=== PATIENT | female | born 1980 | race Caucasian/White ===

== ENCOUNTER 2018-10-14 08:37 | Day surgery (SDC) | payer OTHER ==
[2018-10-07 11:19] LABS: HEMOGLOBIN 13.7 g/dL (12.0-15.5); MEAN CORPUSCULAR HEMOGLOBIN 29.3 pg (27.0-33.4); MEAN CORPUSCULAR HGB CONC 34.3 g/dL (32.0-36.0); MEAN CORPUSCULAR VOLUME 85 fl (80-97); PLATELET COUNT 262 10^3/uL (150-450); RED CELL DISTRIBUTION WIDTH 12.9 % (11.5-14.0); WHITE BLOOD COUNT 9.8 10^3/uL (4.0-10.5)
[2018-10-07 11:24] LABS: APPEARANCE,URINE SLIGHTLY-CLOUDY; BILIRUBIN,URINE NEGATIVE (NEGATIVE); COLOR,URINE YELLOW; GLUCOSE, URINE NEGATIVE (NEGATIVE); KETONES,URINE NEGATIVE (NEGATIVE); LEUKOCYTE ESTERASE,URINE NEGATIVE (NEGATIVE); NITRITE,URINE NEGATIVE (NEGATIVE); PROTEIN,URINE NEGATIVE (NEGATIVE); URINE SPECIFIC GRAVITY 1.018; UROBILINOGEN,URINE NEGATIVE mg/dL (<2.0)
[2018-10-07 11:51] LABS: ALANINE AMINOTRANSFERASE 12 U/L (9-52); ALBUMIN 4.6 g/dL (3.5-5.0); ALKALINE PHOSPHATASE 59 U/L (38-126); ANION GAP 12 (5-19); ASPARTATE AMINO TRANSFERASE 16 U/L (14-36); BILIRUBIN,DIRECT 0.2 mg/dL (0.0-0.4); BILIRUBIN,TOTAL 0.4 mg/dL (0.2-1.3); BLOOD UREA NITROGEN 9 mg/dL (7-20); CARBON DIOXIDE 25 mmol/L (22-30); CHLORIDE 105 mmol/L (98-107); GLUCOSE 60 mg/dL (75-110); POTASSIUM 3.8 mmol/L (3.6-5.0); SODIUM 142.2 mmol/L (137-145); TOTAL PROTEIN 7.7 g/dL (6.3-8.2)
[~2018-10-14 08:37] MED LIST: CEFAZOLIN 2 GM/D5W RTU 2 GM/50 ML RTUPB IV ONE; CEFAZOLIN 2 GM/D5W RTU 2 GM/50 ML RTUPB IV PRN; LACTATED RINGERS 1000 ML IV PRN; LIDOCAINE 0.5% INJ-PF (5 MG/ML) 50 ML SDV SUBCUT PRN; RINGERS SOLUTION,LACTATED 1,000 ML IV PRN
[2018-10-14] MEDS ORDERED: BUPIVACAINE HCL 0.25 % INJ/PF (2.5 MG/1 ML) 30 ML VIAL ONE (09:04)
[2018-10-14] MEDS ORDERED: METHYLENE BLUE 50 MG/10 ML AMPULE ONE (09:04)
[2018-10-14] MEDS ORDERED: LIDOCAINE 2% INJ-PF (100 MG/5 ML) SYRINGE ONE (09:27)
[2018-10-14] MEDS ORDERED: FENTANYL CITRATE INJ/PF 250 MCG/5 ML AMPULE ONE (09:27)
[2018-10-14] MEDS ORDERED: MIDAZOLAM 2 MG/2 ML INJ ONE (09:27)
[2018-10-14] MEDS ORDERED: ONDANSETRON HCL INJ/PF 4 MG/2 ML SDV ONE (09:27)
[2018-10-14] MEDS ORDERED: DEXAMETHASONE SOD PHOSPHATE INJ 4 MG/1 ML VIAL ONE (09:27)
[2018-10-14] MEDS ORDERED: HYDROMORPHONE HCL INJ/PF 2 MG/ML AMPULE ONE (09:27)
[2018-10-14] MEDS ORDERED: EPHEDRINE SULFATE INJ 50 MG/1 ML AMPULE ONE (09:27)
[2018-10-14] MEDS ORDERED: PROPOFOL INJ 200 MG/20 ML VIAL IV ONE (09:28)
[2018-10-14] MEDS ORDERED: ACETAMINOPHEN 1,000 MG/100 ML RTUPB IV ONE (09:28)
[2018-10-14] MEDS ORDERED: PROMETHAZINE HCL INJ 25 MG/1 ML VIAL ONE (09:50)
[2018-10-14] MEDS ORDERED: PROMETHAZINE HCL INJ 25 MG/1 ML VIAL IV PRN ×3 (10:30→12:53)
[2018-10-14] MEDS ORDERED: FENTANYL CITRATE INJ/PF 100 MCG/2 ML AMPUL IV PRN ×3 (10:30)
[2018-10-14] MEDS ORDERED: MEPERIDINE HCL/PF INJ 25 MG/1 ML DISP.SYRIN IV PRN (10:30)
[2018-10-14] MEDS ORDERED: MORPHINE SULFATE 10 MG/ML INJ IV PRN ×2 (10:30→12:52)
[2018-10-14] MEDS ORDERED: DIPHENHYDRAMINE HCL 50 MG/ML VIAL IV PRN (10:30)
[2018-10-14] MEDS: FENTANYL CITRATE INJ/PF 100 MCG/2 ML AMPUL ONE ×3 (12:24→12:35)
[2018-10-14] MEDS ORDERED: OXYCODONE-ACETAMINOPHEN 5-325 MG TABLET PO PRN (12:50)
[2018-10-14] MEDS ORDERED: OXYCODONE HCL IR 5 MG TABLET PO PRN (12:52)
[2018-10-14] MEDS ORDERED: ONDANSETRON HCL INJ/PF 4 MG/2 ML SDV IV PRN (12:53)
[2018-10-14] MEDS ORDERED: NORMAL SALINE 1000 ML 1,000 ML IV ONE (13:00)
--- NOTE | 2018-10-14 13:12 | OPERATIVE REPORT E ---
Operative Report NAME: BRENNEN SIMMONS : 1980 AGE: 37Y DATE OF SURGERY: 10/14/2018 ROOM: PREOPERATIVE DIAGNOSES: 1. Abnormal uterine bleeding, unresponsive to previous medical therapy. 2. Chronic *------* pain. 3. 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 POSTOPERATIVE DIAGNOSES: 1. Abnormal uterine bleeding, unresponsive to previous medical therapy. 2. Chronic *------* pain. 3. 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 PROCEDURES: 1. Robotic total laparoscopic hysterectomy. 2. Bilateral salpingectomy. 3. Left salpingo-oophorectomy. 4. Cystoscopy. SURGEON: Chante Roque M.D. INSURANCE CLAIMS ASSISTANT: Alycia Shaffer M.D. ANESTHESIA: General. ESTIMATED BLOOD LOSS: 150 mL. URINE OUTPUT: 200 mL clear urine at end of procedure. FLUIDS: 1200 mL. COMPLICATIONS: None. SPECIMEN: Uterus, tubes bilaterally and left ovary with a teratoma and dermoid and cervix. DISPOSITION: To PACU. INDICATIONS: The patient is a 37-year-old G2, P1-0-1-1 who presented with a chief complaint of abnormal uterine bleeding, ongoing for several months, unresponsive to previous medical therapy, and has been having chronic pelvic pain. The patient also reports, based on her ultrasound results, that she has a 7 cm left ovarian teratoma. She was consented on procedure on robotic hysterectomy as she is not dependent of surgical management and procedure, was counseled including but not limited to risk of bleeding, infection, injury to bowel, bladder, risk of transfusion, possible exploratory laparotomy and any other indicated procedures. The patient agreed and consented to proceed to the operating room. DESCRIPTION OF PROCEDURE: The patient was taken to the operating room where general anesthesia was achieved without difficulty. She was prepped and draped in the usual sterile fashion from below. A heavy-weighted speculum was inserted and the Clayton retractor anteriorly was introduced. Cervix was visualized, grasped with a single-toothed tenaculum and cervical os was stenotic and was dilated with Hegar dilators. A Vcare manipulator was introduced without difficulty. After sounding the uterus to approximately 10 cm, the balloon was infiltrated, anchored in place, and figure of eight stitches at 3 and 9 o'clock were introduced as well and anchored within the Vcare itself. At this point, a heavy-weighted speculum was removed and a tenaculum was removed. Mcmahon catheter was inserted prior to insertion of Vcare. From above, a supraumbilical horizontal incision was performed through a 10 mm port. Veress needle introduced without difficulty. Drop test was successful. Carbon dioxide was used to insufflate the abdomen. Three additional ports were inserted under direct visualization after laparoscopic confirmation and intra-abdominal placement, one in the right lower, one in the left lower, and one in the right upper quadrant. At this point, the robot was docked and appropriate and then the procedure was initiated. At this point, both ureters were identified on the right and left and both were peristalsing in normal fashion and away from the surgical field. On the right side, the right fallopian tube was grasped from the fimbriated end, picked up, cauterized and transected along the mesosalpinx all the way to the cornua region. The round ligament was cauterized and transected. The right utero-ovarian ligament was cauterized and transected all the way down to the level of the uterine vessels. The anterior broad ligament leaf was expanded with traction and the bladder was pushed away from the right side of the aspect before doing the colpotomy. On the contralateral side, the left infundibulopelvic ligament was identified. The ureter was visualized and was away from the proximity of the IP. At this point, the infundibulopelvic was cauterized in a couple locations and then cauterized and transected and the round ligament was cauterized and transected all the way down to the level of the uterus. The bladder flap that was initiated on the right side was connected on the left side and was pushed all the way down successfully away from the surgical field. At this point, again, the ureters on both sides were in visual villalobos and were away from the surgical intervention. An anterior colpotomy was performed and a posterior colpotomy was performed, and in a circumferential manner, they were both connected from anterior to posterior. At this point, the uterus, cervix, right fallopian tube was removed vaginally and a large Endobag pouch was inserted transvaginally in order to put the left dermoid and left fallopian tube in it so we do not have spillage of contents and that was performed successfully after introduction of the large Endobag and it was removed successfully intact. At this point, the vaginal cuff was closed with a V-Loc suture in a running continuous fashion. Hemostasis was obtained. Small oozing. Portion of the endopelvic sidewalls were identified. Those were cauterized with a bipolar. After multiple irrigation, suctioned back and forth. Hemostasis was obtained. Prophylactic FloSeal was injected along the vaginal cuff and the pelvic sidewalls. During the vaginal cuff closure, I asked Anesthesia to give him methylene blue in order to prepare for the cystoscopy portion. Methylene blue was given. Cystoscopy was performed. Double bubble sign was visualized. No trauma or foreign body visualized in the bladder and both the right and the left ureter were visualized with strong efflux of flow of methylene blue bilaterally. At this point, the cystoscopy portion was complete. The vaginal mucosa was inspected. There were no lacerations. Attention went back from above. The robot was undocked. Trocars were removed. All 4 incisions were repaired and reapproximated with 4-0 Monocryl. The supraumbilical incision was reapproximated with a UR6 to reapproximate the fascia. The 4-0 Monocryl was used to close the subcuticular fascia and close all the skin. Dermabond was applied to all the skin incisions. The patient tolerated the procedure well. Sponge, lap, and needle counts were correct x2. The patient was taken to the recovery room in stable condition. Specimen will be taken to pathology for further specimen examination. DICTATING PHYSICIAN: Chante Roque MD [id number] PHY#: [id number] ID: [id number] JOB#: [id number] ACCT: [id number] cc:Chante Roque >
[2018-10-14] MEDS ORDERED: ROCURONIUM BROMIDE INJ 50 MG/5 ML VIAL IV ONE (15:16)
[2018-10-14] MEDS ORDERED: SUCCINYLCHOLINE CHLORIDE INJ 200 MG/10 ML VIAL ONE (15:16)
[2018-10-14] MEDS ORDERED: GLYCOPYRROLATE 1 MG/5 ML SYRINGE ONE (15:16)
[2018-10-14] MEDS ORDERED: NEOSTIGMINE METHYLSULFATE 10 MG/10 ML VIAL ONE (15:16)
[2018-10-14] MEDS ORDERED: KETOROLAC TROMETHAMINE 60 MG/2 ML SDV ONE (15:16)
[2018-10-14 16:32] VITALS: BP 114/73
[2018-10-15] MEDS ORDERED: LANSOPRAZOLE 15 MG TAB.RAP.DR PO SCH (06:00)
[2018-10-15] MEDS ORDERED: CETIRIZINE 10 MG TABLET PO SCH (10:00)
[2018-10-15] MEDS ORDERED: (PENDING PHARMACY ID) (Pantoprazole Sodium [Protonix] 1 TAB) PO SCH (10:00)
== END 2018-10-14 17:38 | disposition home or self-care (01) ==
LOC: OROUT 08:37 → 2N 14:28 → OROUT 17:38
PROVIDERS: ATTEND Obstetrics & Gynecology
DX: G89.29 Other chronic pain (principal); R10.2 Pelvic and perineal pain; N92.4 Excessive bleeding in the premenopausal period; N72 Inflammatory disease of cervix uteri; N80.0 Endometriosis of uterus; N83.8 Other noninflammatory disorders of ovary, fallopian tube and broad ligament; D39.12 Neoplasm of uncertain behavior of left ovary; F17.210 Nicotine dependence, cigarettes, uncomplicated
CPT/HCPCS: 58571; S2900; 36415; 80053; 81001; 81025; 82962; 840; 84703; 85027; 88307; J0131; J0330; J0690; J1100; J1170; J1885; J2001; J2250; J2270; J2405; J2550; J2704; J3010; J3490; Q9968

== ENCOUNTER → 2020-05-14 | Outpatient (CLI) | payer OTHER ==
--- NOTE | 2020-05-14 12:51 | WOMENS IMAGING REPORT ---
EXAM DESCRIPTION: U/S ABDOMEN LIMITED IMAGES COMPLETED DATE/TIME: 05/14/2020 9:31 am REASON FOR STUDY: ABD PAIN R10.13 R10.13 EPIGASTRIC PAIN COMPARISON: 07/07/2016 TECHNIQUE: Dynamic and static grayscale images acquired of the abdomen and recorded on PACS. Additio jaqui selected color Doppler and spectral images recorded. LIMITATIONS: None. FINDINGS: PANCREAS: Not seen. LIVER: No masses. Echotexture normal. LIVER VASCULATURE: Normal directional flow of the main portal vein and hepatic veins. GALLBLADDER: No stones. Normal wall thickness. No pericholecystic fluid. ULTRASOUND-DETECTED HANDY'S SIGN: Negative. INTRAHEPATIC DUCTS AND COMMON DUCT: CBD and intrahepatic ducts normal caliber. No filling defects. INFERIOR VENA CAVA: Normal flow. AORTA: No aneurysm. RIGHT KIDNEY: Normal size, 10.1 cm. Normal echogenicity. No solid or suspicious masses. No hydroneph rosis. No calcifications. PERITONEAL AND RIGHT PLEURAL SPACE: No ascites or effusions. OTHER: No other significant findings. IMPRESSION: NORMAL RIGHT UPPER QUADRANT ULTRASOUND. TECHNICAL DOCUMENTATION: JOB ID: [id number] 2010 [employer]- All Rights Reserved Reading location - IP/workstation name: [email or web address]
== END ==
LOC: WI 08:51
PROVIDERS: ATTEND Internal Medicine Gastroenterology
DX: R10.13 Epigastric pain (principal)
CPT/HCPCS: 76705